=== PATIENT | male | born 1965 | race Caucasian/White ===

== ENCOUNTER 2021-05-06 08:00 | Outpatient (RCR) | payer SELFPAY ==
--- NOTE | 2021-04-20 10:45 | HP.OTEVAL_ITS ---
Patient's Visit Information NADINE ESPINOZA is a 55 year old M, referred to Occupational Therapy by Dr. Jonatan Gayle MD, with a diagnosis of left CTS/ DeQuervain's. Date of Evaluation: 04/20/21 Occupational Therapist: Mary Link, OTR/[place], CHT - Subjective This 55 year old male was seen for OT eval with dx of left CTS and right radial styloid tenosynovitis -pt states right pain comes and goes and has for awhile - more painful with home projects. left thumb numbness more since 5 week RV trip with many hours of driving and holding steering wheel tight. Pt states the numbness of is left thumb is less but still bothersome- pt would like to return to performing home re-model as able. 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 - Pain right wrist 2 Pain Intensity Range: 5 left hand 1 Pain Intensity Range: 3 - ROM Wrist: right 70/65 left 60/55 CMC: right 15 left 15 MP: right 40 left 55 IP: right 70 left 70 Radial Abduction: right 40 left 45 Opposition: right 10 left 10 - Strength Material [employer]: right 90# left 90# Lateral Pinch: right 16# pain with release left 20# Tripod Pinch: right 10# with pain left 14# Tip-to-Tip Pinch: right 10# left 10# - Sensation Sensation Comments: tip of left thumb ulnar side tingling. denies any other finger tips - Quick DASH-Disab of Arm,Shoulder& Hand Quick DASH Score: 16.0700 - Goals Goal:: pt will report pain no greater than 1/10 with use of right UE with ADls and IADls by dc Goal:: pt will report 70% less numbness by d/c to increase ind with ADLs by d/c. pt will test at 2.83 on monofilaments indicating sensation return Goal:: pt will demo understanding of joint protection- wrist ergo to decrease stress on tendons by end of session 4. Goal:: pt will self report the ability to swing hammer with pain no greater than 2/10 by d.c Goal:: pt will demo IND doffing/donning of orthosis by end of 1st session. pt will demo understanding of orthosis precautions by end of 1st session. - Rehabilitation General Assessment: pt demo with with painful right wrist and tingling in left thumb limiting use of bilateral hand with IADLs and work tasks. Pt would benefit from skilled OT services 2x week for 4 weeks. Today therapist griselda. custom thumb spica orthosis for right wrist and ed. pt to use cock-up brace for night on left to limit median nerve compression- pt demo understanding- therapy will ed. pt on wrist ergo with ADls and with his health and wellness exercise. Therapy will ed. pt on postural ex. median nerve glides to assist in decreasing symptoms and return pt to his PLOF. Pt agrees with POC. Rehabilitation Potential: Good - Anticipated Interventions Strengthening, Triggerpoint Release, Modalities, Orthoses, Ergonomic Education, Education re Diagnosis - Visit Plan Frequency: 2x /Week Duration: 4 Weeks TEXT: Thank you for the opportunity to evaluate your patient. For Medicare and Medicare HMO plans, please review the plan of care and approve it. It will need to be FAXED BACK to us at [phone] for Medicare purposes. Please let me know if there are questions or concerns regarding this plan of care. Physician Signature: Date:
--- NOTE | 2021-05-13 08:50 | HP.OTDCSUM_ITS ---
It has been my pleasure to treat NADINE ESPINOZA under orders from Dr. Jonatan Gayle MD, for the diagnosis of left CTS/ DeQuervain's for a total of 6 visit(s). Please see the following information for a summary of their discharge status. 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 right lateral pinch 16#. right tripod pinch 8#. pt demo neg. awa's testing. pt demo understanding of use of orthosis for heavy tasks -. pt ed. on wrist and thumb ergro-. pts left thumb numbness has resolved. pt agree to d/c with HEP Patient Goals: Decrease Pain, Use Hand/Wrist/Arm Normally Again Goal:: pt will report pain no greater than 1/10 with use of right UE with ADls and IADls by dc Goal:: pt will report 70% less numbness by d/c to increase ind with ADLs by d/c. pt will test at 2.83 on monofilaments indicating sensation return Goal:: pt will demo understanding of joint protection- wrist ergo to decrease stress on tendons by end of session 4. Goal:: pt will self report the ability to swing hammer with pain no greater than 2/10 by d.c Goal:: pt will demo IND doffing/donning of orthosis by end of 1st session. pt will demo understanding of orthosis precautions by end of 1st session. Plan: D/C Discharge Comments: pt has had a decrease in pain and has returned to performing ADLs at IND. level. pt was instructed in HEP and tips for his lifting in the gym. pt has made gains with decreasing wrist pain- use of supportive bracing and performing thumb care exercises to increase thumb stability- pt has met goals and agree to d.c with HEP If there are questions or concerns regarding this patient's occupational therapy, please fell free to call me at [phone]. Thank you for the referral of this patient. Sincerely, Mary Link, OTR/L, CHT
== END 2021-05-06 19:00 | disposition home or self-care (01) ==
LOC: OT 08:00
PROVIDERS: PCP Nurse Practitioner Family; Referring Provider Specialist; Visit Provider Specialist
DX: G56.02 Carpal tunnel syndrome, left upper limb (principal); M65.4 Radial styloid tenosynovitis [de Quervain]
CPT/HCPCS: 97035; 97110; 97140; 97166; 97530; 97760

== ENCOUNTER → 2025-03-25 | Outpatient (CLI) | payer SELFPAY ==
--- OUTSIDE RECORDS SUMMARY | 2025-03-25 07:08 | XMS RPT_ITS | CCD ---
Author Organization [facility] Care Team Providers Care Lead Business Systems Analyst Name Role Phone JOSE R OLEARY APRN, CNP Primary Care Phys ician JOSE R OLEARY APRN, CNP Attending U JOSE R Lopez APRN, CNP Primary Care U kirk Medications Current Medications Medication Drug Class(es) Dates Sig (Normalized) Sig (Original) azithromycin 250 mg oral tablet (1 source) Macrolide Antimicrobial Start: 06-19-2021 End: 06-24-2021 Zithromax 250 mg oral tablet Dose : 250 mg = 1 tab(s), Oral, qDay, follow directions on Z-Renard, X 5 day(s), # 6 tab(s), 0 Refill(s), 06/24/21 15:29:00 EDT, Pharmacy: [facility]/pharmacy #[id number], 170.2, cm, 06/19/21 14:37:00 EDT, Height, 86.4, kg, 06/19/21 14:37:00 EDT, Dosing Weight Start Date: 06/19/21 Stop Date: 06/24/21 Status: Ordered guaiFENesin 600 mg oral tablet (1 source) Start: 06-19-2021 End: 06-29-2021 guaiFENesin 600 mg oral tablet, extended release Dose : 600 mg = 1 tab(s), Oral, q12h, X 10 day(s), # 20 tab(s), 0 Refill(s), 06/29/21 15:30:00 EDT, Pharmacy: [facility]/pharmacy #[id number], 170.2, cm, 06/19/21 14:37:00 EDT, Height, kg, 06/19/21 14:37:00 EDT, Dosing Weight Start Date: 06/19/21 Stop Date: 06/29/21 Status: Ordered Medrol Dosepak 4 mg oral tablet (1 source) Start: 06-19-2021 End: 06-25-2021 Medrol Dosepak 4 mg oral tablet Per Dosepak Instructions, Oral, Daily, as directed on package labeling, X 6 day(s), # 1 packet(s), 0 Refill(s), 06/25/21 15:30:00 EDT, Pharmacy: [facility]/pharmacy #[id number], 170.2, cm, 06/19/21 14:37:00 EDT, Height, kg, 06/19/21 14:37:00 EDT, Dosing Weight Start Date: 06/19/21 Stop Date: 06/25/21 Status: Ordered turmeric extract 500 mg oral capsule (1 source) Start: 11-30-2021 turmeric 500 mg oral capsule 0 Refill(s) Start Date: 11/30/21 Status: Ordered Vitamin C 25 mg oral tablet, chewable (2 sources) Start: 11-30-2021 take 1 mg by mouth once daily Vitamin C 25 mg oral tablet, chewable mg = tab(s), Chewed, qDay, 0 Refill(s) Start Date: 11/30/21 Status: Ordered Vitamin D2 50 mcg (2000 intl units) oral capsule (2 sources) Start: 11-30-2021 Vitamin D2 50 mcg (2000 intl units) oral capsule Dose : 50 mcg = 1 cap(s), Oral, qDay, with food, # 60 cap(s), 0 Refill(s) Start Date: 11/30/21 Status: Ordered Completed/Discontinued Medications Medication Drug Class(es) Dates Sig (Normalized) Sig (Original) tadalafil 2.5 mg oral tablet (3 sources) Phosphodiesterase 5 Inhibitor Start: 05-31-2023 End: 11-27-2023 Cialis 2.5 mg oral tablet Dose : 2.5 mg = 1 tab(s), Oral, qDay, # 30 tab(s), 5 Refill(s), Pharmacy: [facility] #[id number], ED (erectile dysfunction), 167, cm, 05/31/23 13:22:00 EST, Height, kg, 05/31/23 13:22:00 EST, Dosing Weight Start Date: 05/31/23 Stop Date: 11/27/23 Status: Ordered Start: 11-30-2021 End: 06-28-2022 Cialis 2.5 mg oral tablet Do se : 2.5 mg = 1 tab(s), Oral, qDay, # 30 tab(s), 6 Refill(s), Pharmacy: [facility] #[id number], ED (erectile dysfunction), 170.2, cm, 11/30/21 8:04:00 EDT, Height, kg, 11/30/21 8:04:00 EDT, Dosing Weight Start Date: 11/30/21 Stop Date: 06/28/22 Status: Ordered Start: 06-01-2021 End: 09-29-2021 Cialis 2.5 mg oral tablet Do se : 2.5 mg = 1 tab(s), Oral, qDay, # 30 tab(s), 3 Refill(s), ED (erectile dysfunction), 167, cm, 06/01/21 14:48:00 EST, Height, kg, 06/01/21 14:48:00 EST, Dosing Weight Start Date: 06/01/21 Stop Date: 09/29/21 Status: Ordered Problems Problem Classification Problem Date Documented Da te Episodic/Chronic Other and unspecified benign neoplasm (2 sources) Polyp of colon 11-30-2021 Episodic Other lower respiratory disease (2 sources) Chronic cough 06-23-2021 Episodic Other male genital disorders (3 sources) Impotence 01-28-2020 Chronic Other nutritional; endocrine; and metabolic disorders (1 source) Body mass index 30+ - obesity 05-31-2023 Chronic Other nutritional; endocrine; and metabolic disorders (2 sources) Body mass index (BMI) 31.0-31.9, adult; Translations: [Body mass index [BMI] 31.0-31.9, adult] Onset: 11-24-2023 Chronic Other screening for suspected conditions (not mental disorders or infectious disease) (6 sources) Encounter for screening for malignant neoplasm of prostate; Translations: [Encounter for screening for diabetes mellitus] Onset: 11-24-2023 Episodic Unclassified (5 sources) Patient encounter status 11-30-2021 Results Test Name Value Interpretation Reference Range Facility .Auto Diffon 11-24-2023 Basophil, Absolute 0.0 10 3/mcL Normal 0.0-0.2 [facility] ([place]) Comment on above: Performed By: #### G FR, PSA, ADIFF, LIPID, CBC, ANEU, CMP, A1C #### [address] [address] Basophils/100 WBC (Bld) 0.6 % Normal 0.0-2.5 [facility] ([place]) Comment on above: Performed By: #### G FR, PSA, ADIFF, LIPID, CBC, ANEU, CMP, A1C #### [address] [address] Eosinophil, Absolute 0.2 10 3/mcL Normal 0.0-0.4 [facility] ([place]) Comment on above: Performed By: #### G FR, PSA, ADIFF, LIPID, CBC, ANEU, CMP, A1C #### [address] [address] Eosinophils/100 WBC (Bld) 2.4 % Normal 0.0-7.0 [facility] ([place]) Comment on above: Performed By: #### G FR, PSA, ADIFF, LIPID, CBC, ANEU, CMP, A1C #### [address] [address] Lymphocyte, Absolute 1.8 10 3/mcL Normal 0.8-3.9 [facility] ([place]) Comment on above: Performed By: #### G FR, PSA, ADIFF, LIPID, CBC, ANEU, CMP, A1C #### [address] [address] Lymphocytes/100 WBC (Bld) 24.4 % Normal 10.0-50.0 [facility] ([place]) Comment on above: Performed By: #### G FR, PSA, ADIFF, LIPID, CBC, ANEU, CMP, A1C #### [address] [address] Monocyte, Absolute 0.7 10 3/mcL Normal 0.2-1.0 [facility] ([place]) Comment on above: Performed By: #### G FR, PSA, ADIFF, LIPID, CBC, ANEU, CMP, A1C #### [address] [address] Monocytes/100 WBC (Bld) 9.5 % Normal 1.7-13.0 [facility] ([place]) Comment on above: Performed By: #### G FR, PSA, ADIFF, LIPID, CBC, ANEU, CMP, A1C #### [address] [address] Neutrophils/100 WBC (Bld) 63.1 % Normal 37.0-80.0 [facility] ([place]) Comment on above: Performed By: #### G FR, PSA, ADIFF, LIPID, CBC, ANEU, CMP, A1C #### [address] [address] .GFRon 11-24-2023 GFR Non- 71 ml/min/1.73sqm Normal [facility] ([place]) Comment on above: Result Comment: GFR Population mean for , Non- Americans Ages 20-29 = 116 mL/min/1.73 sq.m. Ages 30-39 = 107 mL/min/1.73 sq.m. Ages 40-49 = 99 mL/min/1.73 sq.m. Ages 50-59 = 93 mL/min/1.73 sq.m. Ages 60-69 = 85 mL/min/1.73 sq.m. Ages 70+ = 75 mL/min/1.73 sq.m. Chronic Kidney Disease: Less than 60 mL/min/1.73 square meters End Stage Renal Disease: Less than 15 mL/min/1.73 square meters Performed By: #### G FR, PSA, ADIFF, LIPID, CBC, ANEU, CMP, A1C #### [address] [address] GFR 86 ml/min/1.73sqm Normal [facility] ([place]) Comment on above: Result Comment: GFR Population mean for , Non- Americans Ages 20-29 = 116 mL/min/1.73 sq.m. Ages 30-39 = 107 mL/min/1.73 sq.m. Ages 40-49 = 99 mL/min/1.73 sq.m. Ages 50-59 = 93 mL/min/1.73 sq.m. Ages 60-69 = 85 mL/min/1.73 sq.m. Ages 70+ = 75 mL/min/1.73 sq.m. Chronic Kidney Disease: Less than 60 mL/min/1.73 square meters End Stage Renal Disease: Less than 15 mL/min/1.73 square meters Performed By: #### G FR, PSA, ADIFF, LIPID, CBC, ANEU, CMP, A1C #### [address] [address] .NEUABSon 11-24-2023 Neutrophil, Absolute 4.8 10 3/mcL Normal 2.9-6.2 [facility] ([place]) Comment on above: Performed By: #### G FR, PSA, ADIFF, LIPID, CBC, ANEU, CMP, A1C #### [address] [address] A1Con 11-24-2023 Glucose [Mass/Vol] 111 mg/dL Normal [facility] ([place]) Comment on above: Result Comment: Alejandra mated Average Glucose calculated by equation ((28.7xA1C)-46.7) Estimated average glucose (eAG) is a calculated value from Hemoglobin A1C and is technology sales representative of the average blood glucose level in the last 2-3 month period. Normal range: less than 114 mg/dL Performed By: #### G FR, PSA, ADIFF, LIPID, CBC, ANEU, CMP, A1C #### [address] [address] HbA1c (Bld) [Mass fraction] 5.5 % Normal 4.3-6.4 [facility] ([place]) Comment on above: Performed By: #### G FR, PSA, ADIFF, LIPID, CBC, ANEU, CMP, A1C #### [address] [place], [place] [address] CBCon 11-24-2023 Erythrocyte distribution width (RBC) [Ratio] 13.5 % Normal 11.5-14.5 [facility] ([place]) Comment on above: Performed By: #### G FR, PSA, ADIFF, LIPID, CBC, ANEU, CMP, A1C #### [address] [address] Hematocrit (Bld) [Volume fraction] 45.3 % Normal 42.0-52.0 [facility] ([place]) Comment on above: Performed By: #### G FR, PSA, ADIFF, LIPID, CBC, ANEU, CMP, A1C #### [address] [address] Hgb 15.3 G/dL Normal 14.0-18.0 [facility] ([place]) Comment on above: Performed By: #### G FR, PSA, ADIFF, LIPID, CBC, ANEU, CMP, A1C #### [address] [address] MCH (RBC) [Entitic mass] 31.1 pg Normal 27.0-31.2 [facility] ([place]) Comment on above: Performed By: #### G FR, PSA, ADIFF, LIPID, CBC, ANEU, CMP, A1C #### [address] [address] MCHC 33.8 G/dL Normal 31.8-35.4 [facility] ([place]) Comment on above: Performed By: #### G FR, PSA, ADIFF, LIPID, CBC, ANEU, CMP, A1C #### [address] [address] MCV (RBC) [Entitic vol] 92.1 fL Normal 80.0-94.0 [facility] ([place]) Comment on above: Performed By: #### G FR, PSA, ADIFF, LIPID, CBC, ANEU, CMP, A1C #### [address] [address] Platelet 226 10 3/mcL Normal 130-400 [facility] ([place]) Comment on above: Performed By: #### G FR, PSA, ADIFF, LIPID, CBC, ANEU, CMP, A1C #### [address] [address] Platelet mean volume (Bld) [Entitic vol] 8.1 fL Normal 7.4-10.4 [facility] ([place]) Comment on above: Performed By: #### G FR, PSA, ADIFF, LIPID, CBC, ANEU, CMP, A1C #### [address] [address] RBC 4.92 10 6/mcL Normal 4.04-6.13 [facility] ([place]) Comment on above: Performed By: #### G FR, PSA, ADIFF, LIPID, CBC, ANEU, CMP, A1C #### [address] [address] WBC 7.5 10 3/mcL Normal 4.6-10.8 [facility] ([place]) Comment on above: Performed By: #### G FR, PSA, ADIFF, LIPID, CBC, ANEU, CMP, A1C #### [address] [address] CMPon 11-24-2023 Albumin Level 3.9 G/dL Normal 3.5-5.0 [facility] ([place]) Comment on above: Performed By: #### G FR, PSA, ADIFF, LIPID, CBC, ANEU, CMP, A1C #### [address] [address] Albumin/Globulin [Mass ratio] 1.1 {ratio} Normal 1.1-2.5 [facility]) Comment on above: Performed By: #### G FR, PSA, ADIFF, LIPID, CBC, ANEU, CMP, A1C #### [address] [address] ALP [Catalytic activity/Vol] 57 U/L Normal 40-135 [facility] ([place]) Comment on above: Performed By: #### G FR, PSA, ADIFF, LIPID, CBC, ANEU, CMP, A1C #### [address] [address] ALT [Catalytic activity/Vol] 30 U/L Normal 16-63 [facility] ([place]) Comment on above: Performed By: #### G FR, PSA, ADIFF, LIPID, CBC, ANEU, CMP, A1C #### [address] [address] AST [Catalytic activity/Vol] 19 U/L Normal 10-40 [facility] ([place]) Comment on above: Performed By: #### G FR, PSA, ADIFF, LIPID, CBC, ANEU, CMP, A1C #### [address] [address] Bili Total 0.6 mg/dL Normal 0.2-1.0 [facility] ([place]) Comment on above: Result Comment: Use of this assay is not recommended for patients undergoing treatment with eltrombopag due to the potential for falsely elevated results. Performed By: #### G FR, PSA, ADIFF, LIPID, CBC, ANEU, CMP, A1C #### [address] [address] BUN/Creatinine Ratio 18 ratio Normal 7-27 [facility] ([place]) Comment on above: Performed By: #### G FR, PSA, ADIFF, LIPID, CBC, ANEU, CMP, A1C #### [address] [address] Calcium [Mass/Vol] 9.0 mg/dL Normal 8.4-10.2 [facility] ([place]) Comment on above: Performed By: #### G FR, PSA, ADIFF, LIPID, CBC, ANEU, CMP, A1C #### [address] [address] Chloride [Moles/Vol] 103 mmol/L Normal 98-107 [facility] ([place]) Comment on above: Performed By: #### G FR, PSA, ADIFF, LIPID, CBC, ANEU, CMP, A1C #### [address] [address] CO2 [Moles/Vol] 32 mmol/L High 22-29 [facility] ([place]) Comment on above: Performed By: #### G FR, PSA, ADIFF, LIPID, CBC, ANEU, CMP, A1C #### [address] [address] Creatinine [Mass/Vol] 1.07 mg/dL Normal 0.70-1.30 [facility] ([place]) Comment on above: Performed By: #### G FR, PSA, ADIFF, LIPID, CBC, ANEU, CMP, A1C #### [address] [address] Electrolyte Balance 4.0 mEq/L Normal 4.0-15.0 [facility] ([place]) Comment on above: Performed By: #### G FR, PSA, ADIFF, LIPID, CBC, ANEU, CMP, A1C #### [address] [address] Globulin 3.4 G/dL Normal [facility] ([place]) Comment on above: Performed By: #### G FR, PSA, ADIFF, LIPID, CBC, ANEU, CMP, A1C #### [address] [address] Glucose [Mass/Vol] 95 mg/dL Normal 70-105 [facility] ([place]) Comment on above: Performed By: #### G FR, PSA, ADIFF, LIPID, CBC, ANEU, CMP, A1C #### [address] [address] Potassium [Moles/Vol] 4.3 mmol/L Normal 3.5-5.1 [facility] ([place]) Comment on above: Performed By: #### G FR, PSA, ADIFF, LIPID, CBC, ANEU, CMP, A1C #### [address] [address] Sodium [Moles/Vol] 139 mmol/L Normal 136-145 [facility] ([place]) Comment on above: Performed By: #### G FR, PSA, ADIFF, LIPID, CBC, ANEU, CMP, A1C #### [address] [address] Total Protein 7.3 G/dL Normal 6.4-8.2 [facility] ([place]) Comment on above: Performed By: #### G FR, PSA, ADIFF, LIPID, CBC, ANEU, CMP, A1C #### [address] [address] Urea nitrogen [Mass/Vol] 19 mg/dL High 7-18 [facility] ([place]) Comment on above: Performed By: #### G FR, PSA, ADIFF, LIPID, CBC, ANEU, CMP, A1C #### [address] [place], [place] [address] LABORATORYOrdered By: SYSTEM SYSTEM on 11-24-2023 Albumin BCP dye [Mass/Vol] 3.9 G/dL Normal 3.5 - 5.0 G/dL AO ADM SS Albumin/Globulin [Mass ratio] 1.1 {ratio} Normal 1.1 - 2.5 ratio AO ADM SS ALP [Catalytic activity/Vol] 57 U/L Normal 40 - 135 U/L AO ADM SS ALT With P-5'-P [Catalytic activity/Vol] 30 U/L Normal 16 - 63 U/L AO ADM SS AST With P-5'-P [Catalytic activity/Vol] 19 U/L Normal 10 - 40 U/L AO ADM SS Basophil, Absolute 0.0 103/mcL Normal 0.0 - 0.2 10^3/mcL AO Workflow SS Basophils/100 WBC (Bld) 0.6 % Normal 0.0 - 2.5 % AO Workflow SS Bilirubin [Mass/Vol] 0.6 mg/dL Normal 0.2 - 1 .0 mg/dL AO ADM SS Comment on above: Interpretive Data: U se of this assay is not recommended for patients undergoing treatment with eltrombopag due to the potential for falsely elevated results. Calcium [Mass/Vol] 9.0 mg/dL Normal 8.4 - 10. 2 mg/dL AO ADM SS Chloride [Moles/Vol] 103 mmol/L Normal 98 - 10 7 mmol/L AO ADM SS CO2 [Moles/Vol] 32 mmol/L High 22 - 29 mmol/L AO ADM SS Creatinine [Mass/Vol] 1.07 mg/dL Normal 0.70 - 1.30 mg/dL AO ADM SS Electrolyte Balance 4.0 mEq/L Normal 4.0 - 15 .0 mEq/L AO ADM SS Eosinophil, Absolute 0.2 103/mcL Normal 0.0 - 0 .4 10^3/mcL AO Workflow SS Eosinophils/100 WBC (Bld) 2.4 % Normal 0.0 - 7.0 % AO Workflow SS Erythrocyte distribution width (RBC) [Ratio] 13.5 % Normal 11.5 - 14.5 % AO Workflow SS GFR/1.73 sq M.predicted among blacks MDRD (S/P/Bld) [Vol rate/Area] 86 ml/min/1.73sqm Invalid Interpretation Code AO Chemistry S Comment on above: Interpretive Data: GFR Population mean for , Non- Americans Ages 20-29 = 116 mL/min/1.73 sq.m. Ages 30-39 = 107 mL/min/1.73 sq.m. Ages 40-49 = 99 mL/min/1.73 sq.m. Ages 50-59 = 93 mL/min/1.73 sq.m. Ages 60-69 = 85 mL/min/1.73 sq.m. Ages 70+ = 75 mL/min/1.73 sq.m. Chronic Kidney Disease: Less than 60 mL/min/1.73 square meters End Stage Renal Disease: Less than 15 mL/min/1.73 square meters GFR/1.73 sq M.predicted among non-blacks MDRD (S/P/Bld) [Vol rate/Area] 71 ml/min/1.73sqm Invalid Interpretation Code AO Chemistry S Comment on above: Interpretive Data: GFR Population mean for , Non- Americans Ages 20-29 = 116 mL/min/1.73 sq.m. Ages 30-39 = 107 mL/min/1.73 sq.m. Ages 40-49 = 99 mL/min/1.73 sq.m. Ages 50-59 = 93 mL/min/1.73 sq.m. Ages 60-69 = 85 mL/min/1.73 sq.m. Ages 70+ = 75 mL/min/1.73 sq.m. Chronic Kidney Disease: Less than 60 mL/min/1.73 square meters End Stage Renal Disease: Less than 15 mL/min/1.73 square meters Globulin 3.4 G/dL Invalid Interpretation Code AO ADM SS Glucose [Mass/Vol] 111 mg/dL Invalid Interpretation Code AO Chemistry S Comment on above: Interpretive Data: E stimated average glucose (eAG) is a calculated value from Hemoglobin A1C and is technology sales representative of the average blood glucose level in the last 2-3 month period. Normal range: less than 114 mg/dL Glucose [Mass/Vol] 95 mg/dL Normal 70 - 105 mg/dL AO ADM SS HbA1c (Bld) [Mass fraction] 5.5 % Normal 4.3 - 6.4 % AO ADM SS Hematocrit (Bld) [Volume fraction] 45.3 % Normal 42.0 - 52.0 % AO Workflow SS Hemoglobin (Bld) [Mass/Vol] 15.3 G/dL Normal 14.0 - 18.0 G/dL AO Workflow SS Lymphocyte, Absolute 1.8 103/mcL Normal 0.8 - 3 .9 10^3/mcL AO Workflow SS Lymphocytes/100 WBC (Bld) 24.4 % Normal 10.0 - 50.0 % AO Workflow SS MCH (RBC) [Entitic mass] 31.1 pg Normal 27.0 - 31.2 pg AO Workflow SS MCHC 33.8 G/dL Normal 31.8 - 35.4 G/dL AO Workflow SS MCV (RBC) [Entitic vol] 92.1 fL Normal 80.0 - 94.0 fL AO Workflow SS Monocyte, Absolute 0.7 103/mcL Normal 0.2 - 1.0 10^3/mcL AO Workflow SS Monocytes/100 WBC (Bld) 9.5 % Normal 1.7 - 13.0 % AO Workflow SS Neutrophil, Absolute 4.8 103/mcL Normal 2.9 - 6 .2 10^3/mcL AO Workflow SS Neutrophils/100 WBC (Bld) 63.1 % Normal 37.0 - 80.0 % AO Workflow SS Platelet mean volume (Bld) [Entitic vol] 8.1 fL Normal 7.4 - 10.4 fL AO Workflow SS Platelets (Bld) [#/Vol] 226 103/mcL Normal 130 - 400 10^3/mcL AO Workflow SS Potassium [Moles/Vol] 4.3 mmol/L Normal 3.5 - 5.1 mmol/L AO ADM SS Prostate specific Ag [Mass/Vol] 1.39 ng/mL Normal 0.00 - 4.00 ng/mL AO ADM SS Protein [Mass/Vol] 7.3 G/dL Normal 6.4 - 8.2 G/dL AO ADM SS RBC (Bld) [#/Vol] 4.92 106/mcL Normal 4.04 - 6.1 3 10^6/mcL AO Workflow SS Sodium [Moles/Vol] 139 mmol/L Normal 136 - 145 mmol/L AO ADM SS Urea nitrogen [Mass/Vol] 19 mg/dL High 7 - 18 mg/dL AO ADM SS Urea nitrogen/Creatinine [Mass ratio] 18 ratio Normal 7 - 27 ratio AO ADM SS WBC (Bld) [#/Vol] 7.5 103/mcL Normal 4.6 - 10.8 10^3/mcL AO Workflow SS LABORATORYOrdered By: Meek Farias on 11-24-2023 Cholesterol [Mass/Vol] 175 mg/dL Normal 0 - 200 mg/dL AO ADM SS Comment on above: Interpretive Data: C holesterol Reference Interval: Less than 200 Desirable 200-239 Borderline high risk 240 and above High risk Cholesterol in HDL [Mass/Vol] 55 mg/dL Normal 40 - 60 mg/dL AO ADM SS Cholesterol in LDL [Mass/Vol] 111 mg/dL Normal 0 - 130 mg/dL AO ADM SS Triglyceride [Mass/Vol] 43 mg/dL Normal 0 - 150 mg/dL AO ADM SS Comment on above: Interpretive Data: T riglyceride Reference Interval: Less than 150 Normal 150-199 Borderline high risk 200-499 High risk 500 or higher Very high risk LIPIDon 11-24-2023 Cholesterol [Mass/Vol] 175 mg/dL Normal 0-200 [facility] ([place]) Comment on above: Result Comment: Chol esterol Reference Interval: Less than 200 Desirable 200-239 Borderline high risk 240 and above High risk Performed By: #### G FR, PSA, ADIFF, LIPID, CBC, ANEU, CMP, A1C #### [address] [address] Cholesterol in HDL [Mass/Vol] 55 mg/dL Normal 40-60 [facility] ([place]) Comment on above: Performed By: #### G FR, PSA, ADIFF, LIPID, CBC, ANEU, CMP, A1C #### [address] [place], [place] [address] Cholesterol in LDL [Mass/Vol] 111 mg/dL Normal 0-130 [facility] ([place]) Comment on above: Performed By: #### G FR, PSA, ADIFF, LIPID, CBC, ANEU, CMP, A1C #### [address] [place], [place] [address] Triglyceride [Mass/Vol] 43 mg/dL Normal 0-150 [facility] ([place]) Comment on above: Result Comment: Trig lyceride Reference Interval: Less than 150 Normal 150-199 Borderline high risk 200-499 High risk 500 or higher Very high risk Performed By: #### G FR, PSA, ADIFF, LIPID, CBC, ANEU, CMP, A1C #### [address] [place], [place] [address] PSAon 11-24-2023 Prostate Specific Antigen 1.39 ng/mL Normal 0.00-4.00 [facility] ([place]) Comment on above: Performed By: #### G FR, PSA, ADIFF, LIPID, CBC, ANEU, CMP, A1C #### [address] [place], [place] [address] LABORATORYOrdered By: Emeli Anthony on 11-26-2021 Albumin BCP dye [Mass/Vol] 4.2 G/dL Invalid Interpretation Code 3.5 - 5.0 G/dL AO ADM SS Albumin/Globulin [Mass ratio] 1.3 {ratio} Invalid Interpretation Code 1.1 - 2.5 ratio AO ADM SS ALP [Catalytic activity/Vol] 44 U/L Invalid Interpretation Code 40 - 135 U/L AO ADM SS ALT With P-5'-P [Catalytic activity/Vol] 57 U/L Invalid Interpretation Code 16 - 63 U/L AO ADM SS AST With P-5'-P [Catalytic activity/Vol] 27 U/L Invalid Interpretation Code 10 - 40 U/L AO ADM SS Bilirubin [Mass/Vol] 0.6 mg/dL Invalid Interpretation Code 0.2 - 1.0 mg/dL AO ADM SS Calcium [Mass/Vol] 9.1 mg/dL Invalid Interpretation Code 8.4 - 10.2 mg/dL AO ADM SS Chloride [Moles/Vol] 102 mmol/L Invalid Interpretation Code 98 - 107 mmol/L AO ADM SS Cholesterol [Mass/Vol] 184 mg/dL Invalid Interpretation Code 0 - 200 mg/dL AO ADM SS Cholesterol in HDL [Mass/Vol] 58 mg/dL Invalid Interpretation Code 40 - 60 mg/dL AO ADM SS Cholesterol in LDL [Mass/Vol] 115 mg/dL Invalid Interpretation Code 0 - 130 mg/dL AO ADM SS CO2 [Moles/Vol] 30 mmol/L Invalid Interpretation Code 22 - 29 mmol/L AO ADM SS Creatinine [Mass/Vol] 1.11 mg/dL Invalid Interpretation Code 0.70 - 1.30 mg/dL AO ADM SS Electrolyte Balance 6.0 mEq/L Invalid Interpretation Code 4.0 - 15.0 mEq/L AO ADM SS Globulin 3.2 G/dL Invalid Interpretation Code AO ADM SS Glucose [Mass/Vol] 91 mg/dL Invalid Interpretation Code 70 - 105 mg/dL AO ADM SS Potassium [Moles/Vol] 5.2 mmol/L Invalid Interpretation Code 3.5 - 5.1 mmol/L AO ADM SS Prostate specific Ag [Mass/Vol] 1.64 ng/mL Invalid Interpretation Code 0.00 - 4.00 ng/mL AO ADM SS Protein [Mass/Vol] 7.4 G/dL Invalid Interpretation Code 6.4 - 8.2 G/dL AO ADM SS Sodium [Moles/Vol] 138 mmol/L Invalid Interpretation Code 136 - 145 mmol/L AO ADM SS Triglyceride [Mass/Vol] 56 mg/dL Invalid Interpretation Code 0 - 150 mg/dL AO ADM SS Urea nitrogen [Mass/Vol] 15 mg/dL Invalid Interpretation Code 7 - 18 mg/dL AO ADM SS Urea nitrogen/Creatinine [Mass ratio] 14 ratio Invalid Interpretation Code 7 - 27 ratio AO ADM SS LABORATORYOrdered By: SYSTEM SYSTEM on 11-26-2021 GFR 83 ml/min/1.73sqm Invalid Interpretation Code AO Chemistry S GFR Non- 68 ml/min/1.73sqm Invalid Interpretation Code AO Chemistry S LABORATORYOrdered By: Carmen Yates on 06-23-2021 Adenovirus DNA CARYN+non-probe Ql (Nph) Not Detected *NA* (06/23/21 12:00 PM) Invalid Interpretation Code Not Detected AH Auto Viro/Sero SS ADMITTED TO INTENSIVE CARE UNIT FOR CONDITION OF INTEREST:FIND:PT:^MARK ENT:ORD: No (06/23/21 12:00 PM) Invalid Interpretation Code AH Auto Viro/Sero SS B. pertussis toxin promoter region CARYN+non-probe Ql (Nph) Not Detected *NA* (06/23/21 12:00 PM) Invalid Interpretation Code Not Detected AH Auto Viro/Sero SS Bordetella Parapertussis Not Detected *NA* (06/23/21 12:00 PM) Invalid Interpretation Code Not Detected Auto Viro/Sero SS C. pneumoniae DNA CARYN+non-probe Ql (Nph) Not Detected *NA* (06/23/21 12:00 PM) Invalid Interpretation Code Not Detected Auto Viro/Sero SS EMPLOYED IN A HEALTHCARE SETTING:FIND:PT:^MARKE NT:ORD: No (06/23/21 12:00 PM) Invalid Interpretation Code AH Auto Viro/Sero SS FIRST TEST FOR CONDITION OF INTEREST:FIND:PT:^MARK ENT:ORD: Unknown (06/23/21 12:00 PM) Invalid Interpretation Code [employer] SS FLUAV H3 RNA CARYN+non-probe Ql (Nph) Detected 1 *ABN* (06/23/21 12:00 PM) Invalid Interpretation Code Not Detected [employer] SS Comment on above: Result Comment: This organism causes a reportable disease. Infection Control has been notified. Results have been reported to the [place] [facility]. FLUBV RNA CARYN+non-probe Ql (Nph) Not Detected *NA* (06/23/21 12:00 PM) Invalid Interpretation Code Not Detected [employer] SS HAS SYMPTOMS RELATED TO CONDITION OF INTEREST:FIND:PT:^MARK ENT:ORD: Yes (06/23/21 12:00 PM) Invalid Interpretation Code Auto Viro/Sero SS hMPV RNA CARYN+non-probe Ql (Nph) Not Detected *NA* (06/23/21 12:00 PM) Invalid Interpretation Code Not Detected Auto Viro/Sero SS Illness or injury onset date and time [id number] Invalid Interpretation Code Auto Viro/Sero SS M. pneumoniae DNA CARYN+non-probe Ql (Nph) Not Detected *NA* (06/23/21 12:00 PM) Invalid Interpretation Code Not Detected Auto Viro/Sero SS Parainfluenza virus 1 RNA CARYN+non-probe Ql (Nph) Not Detected *NA* (06/23/21 12:00 PM) Invalid Interpretation Code Not Detected Auto Viro/Sero SS Parainfluenza virus 2 RNA CARYN+non-probe Ql (Nph) Not Detected *NA* (06/23/21 12:00 PM) Invalid Interpretation Code Not Detected Auto Viro/Sero SS Parainfluenza virus 3 RNA CARYN+non-probe Ql (Nph) Not Detected *NA* (06/23/21 12:00 PM) Invalid Interpretation Code Not Detected AH Auto Viro/Sero SS Parainfluenza virus 4 RNA CARYN+non-probe Ql (Nph) Not Detected *NA* (06/23/21 12:00 PM) Invalid Interpretation Code Not Detected AH Auto Viro/Sero SS Patient was hospitalized because of this condition No (06/23/21 12:00 PM) Invalid Interpretation Code AH Auto Viro/Sero SS status Not (06/23/21 12:00 PM) Invalid Interpretation Code AH Auto Viro/Sero SS RESIDES IN A CONGREGATE CARE SETTING:FIND:PT:^PATIE NT:ORD: No (06/23/21 12:00 PM) Invalid Interpretation Code AH Auto Viro/Sero SS Rhinovirus+Enterovirus RNA CARYN+non-probe Ql (Nph) Not Detected *NA* (06/23/21 12:00 PM) Invalid Interpretation Code Not Detected Auto Viro/Sero SS RSV RNA CARYN+non-probe Ql (Nph) Not Detected *NA* (06/23/21 12:00 PM) Invalid Interpretation Code Not Detected Auto Viro/Sero SS SARS-CoV-2 (COVID-19) RNA CARYN+probe Ql (Unsp spec) Not Detected *NA* (06/23/21 12:00 PM) Invalid Interpretation Code Not Detected Auto Viro/Sero SS OT D/C Summaryon 05-13-2021 OT D/C Summary [facility] Occupational Therapy Health[address] [place] [address] / REHABILITATION SERVICES DISCHARGE SUMMARY MR#: [id number] Acct: [id number] Name: NADINE ESPINOZA Rep #: [id number] : 1965 56 From: Mary MCBRIDE/Devon, CHT Referring Dr.: Dr. Jonatan Gayle MD Status: RE G RCR Eval Date: Discharge Date: It has been my pleasure to treat NADINE ESPINOZA under orders from Dr. Jonatan Gayle MD, for the diagnosis of left CTS/ DeQuervain's for a total of 6 visit(s). Please see the following information for a summary of their discharge status. % Improvement: 75 Objective/Function : right v belt finisher strength 90#. right lateral pinch 16#. right tripod pinch 8#. pt demo neg. awa's testing. pt demo understanding of use of orthosis for heavy tasks -. pt ed. on wrist and thumb ergro-. pts left thumb numbness has resolved. pt agree to d/c with HEP Patient Goals: Decrease Pain, Use Hand/Wrist/Arm Normally Again Goal:: pt will report pain no greater than 1/10 with use of right UE with ADls and IADls by dc Goal:: pt will report 70% less numbness by d/c to increase ind with ADLs by d/c. pt will test at 2.83 on monofilaments indicating sensation return Goal:: pt will demo understanding of joint protection- wrist ergo to decrease stress on tendons by end of session 4. Goal:: pt will self report the ability to swing hammer with pain no greater than 2/10 by d.c Goal:: pt will demo IND doffing/donning of orthosis by end of 1st session. pt will demo understanding of orthosis precautions by end of 1st session. Plan: D/C Discharge Comments: pt has had a decrease in pain and has returned to performing ADLs at IND. level. pt was instructed in HEP and tips for his lifting in the gym. pt has made gains with decreasing wrist pain- use of supportive bracing and performing thumb care exercises to increase thumb stability- pt has met goals and agree to d.c with HEP If there are questions or concerns regarding this patient's occupational therapy, please fell free to call me at [phone]. Thank you for the referral of this patient. Sincerely, Mary Link, RAE/Devon, CHT 05/13/21 0850 CC: [facility] [place] LEADERRobbin Espinoza; Dr. Joantan Gayle MD MK Signed Normal [facility] OT General Evaluationon 04-04 OT General Evaluation [facility] Occupational Therapy Health[address] [place] [address] / REHABILITATION SERVICES INITIAL EVALUATION MR#: [id number] Acct: [id number] Name: NADINE ESPINOZA Rep #: [id number] : 1965 55 From: Mary MCBRIDE/Devon, CHT Referring Dr.: Dr. Jonatan Gayle MD Status: RE G RCR Insurance: [facility] PACKAGE PLAN Eval Date: SELF PAY INSURANCE Patient's Visit Information NADINE ESPINOZA is a 55 year old M, referred to Occupational Therapy by Dr. Jonatan Gayle MD, with a diagnosis of left CTS/ DeQuervain's. Date of Evaluation: 04/20/21 Occupational Therapist: Mary Link, RAE/Devon, CHT - Subjective This 55 year old male was seen for OT eval with dx of left CTS and right radial styloid tenosynovitis -pt states right pain comes and goes and has for awhile - more painful with home projects. left thumb numbness more since 5 week RV trip with many hours of driving and holding steering wheel tight. Pt states the numbness of is left thumb is less but still bothersome- pt would like to return to performing home re-model as able. 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 - Pain right wrist 2 Pain Intensity Range: 5 left hand 1 Pain Intensity Range: 3 - ROM Wrist: right 70/65 left 60/55 CMC: right 15 left 15 MP: right 40 left 55 IP: right 70 left 70 Radial Abduction: right 40 left 45 Opposition: right 10 left 10 - Strength Gore Inserter: right 90# left 90# Lateral Pinch: right 16# pain with release left 20# Tripod Pinch: right 10# with pain left 14# Tip-to-Tip Pinch: right 10# left 10# - Sensation Sensation Comments: tip of left thumb ulnar side tingling. denies any other finger tips - Quick DASH-Disab of Arm,Shoulder Hand Quick DASH Score: 16.0700 - Goals Goal:: pt will report pain no greater than 1/10 with use of right UE with ADls and IADls by dc Goal:: pt will report 70% less numbness by d/c to increase ind with ADLs by d/c. pt will test at 2.83 on monofilaments indicating sensation return Goal:: pt will demo understanding of joint protection- wrist ergo to decrease stress on tendons by end of session 4. Goal:: pt will self report the ability to swing hammer with pain no greater than 2/10 by d.c Goal:: pt will demo IND doffing/donning of orthosis by end of 1st session. pt will demo understanding of orthosis precautions by end of 1st session. - Rehabilitation General Assessment: pt demo with with painful right wrist and tingling in left thumb limiting use of bilateral hand with IADLs and work tasks. Pt would benefit from skilled OT services 2x week for 4 weeks. Today therapist griselda. custom thumb spica orthosis for right wrist and ed. pt to use cock-up brace for night on left to limit median nerve compression- pt demo understanding- therapy will ed. pt on wrist ergo with ADls and with his health and wellness exercise. Therapy will ed. pt on postural ex. median nerve glides to assist in decreasing symptoms and return pt to his PLOF. Pt agrees with POC. Rehabilitation Potential: Good - Anticipated Interventions Strengthening, Triggerpoint Release, Modalities, Orthoses, Ergonomic Education, Education re Diagnosis - Visit Plan Frequency: 2x /Week Duration: 4 Weeks TEXT: Thank you for the opportunity to evaluate your patient. For Medicare and Medicare HMO plans, please review the plan of care and approve it. It will need to be FAXED BACK to us at [phone] for Medicare purposes. Please let me know if there are questions or concerns regarding this plan of care. Physician Signature: Date: ____ 04/22/21 0833 CC: ANDRES Espinoza; Dr. Jonatan Gayle MD TANJA Signed For Medicare only, by signing this I certify the plan of care. __ Physicians Signature Date Normal [facility] Encounters Encounter Date Encounter Type Care Provider Facility Start: 11-24-2023 End: 11-28-2023 ambulatory JOSE R ESPINOZA MAINTENANCE INSPECTOR - BICYCLE SERVICE TECHNICIAN Facility:B Start: 11-24-2023 End: 11-28-2023 Outreach Lab JOSE R ESPINOZA MAINTENANCE INSPECTOR - BICYCLE SERVICE TECHNICIAN [facility] Start: 11-26-2021 End: 11-30-2021 Outreach Lab JOSE R Tania ESPINOZA MAINTENANCE INSPECTOR - BICYCLE SERVICE TECHNICIAN [facility] Start: 06-23-2021 End: 06-23-2021 Patient encounter procedure JOSE R ESPINOZA MAINTENANCE INSPECTOR - BICYCLE SERVICE TECHNICIAN [facility] Immunizations Immunization Date Immunization Notes Care Provider Fa cility 07-10-2020 SARS-CoV-2 (COVID-19 ) Ad26 vaccine, recombinant JOSE R ESPINOZA MAINTENANCE INSPECTOR - BICYCLE SERVICE TECHNICIAN [facility] Shaista Comment on above: Result Comment: 2021: [id number] Payers Date Payer Category Payer Self-pay 1965 Unknown [id number] Social History Date Type Detail Facility Start: 01-16-2019 End: 05-31-2023 Never smoked tobacco (finding) [facility] Sex Assigned At [facility] Evaluation + Plan note 06-23-2021 LaboratoryRadiology Note Date & Type Note Facility 06-23-2021 Evaluation + Plan note Future Scheduled TestsC-Reactive Protein 06/23/21D-Dimer 06/23/21Complete Blood Count 06/23/21XR Chest 2 Views (PA & Lateral) 3/22/22 [facility] HCoV 229E RNA CARYN+non-probe Ql (Nph) 06-23-2021 Note Date & Type Note Facility 06-23-2021 HCoV 229E RNA CARYN +non-probe Ql (Nph) Not Detected *NA* (06/23/21 12:00 PM) AH Auto Viro/Sero SS Evaluation + Plan note LaboratoryRadiology Note Date & Type Note Facility Evaluation + Plan note Future Appointments Appointment Date:11/26/2021 08:45:00 AM Scheduled Provider: Location:[facility] Appointment Type:PC Nurse Lab Appointment Date:11/30/2021 08:00:00 AM Scheduled Provider:JOSE R ESPINOZA APRN, CNP Location:[facility] Appointment Type: Wellness Annual w/Labs Future Scheduled TestsC-Reactive Protein 06/23/21D-Dimer 06/23/21Prostate Specific Antigen 11/29/21Complete Blood Count 06/23/21Lipid Profile 11/29/21Complete Metabolic Panel 11/29/21XR Chest 2 Views (PA & Lateral) 06/23/21 [facility] Evaluation + Plan note Note Date & Type Note Facility Evaluation + Plan note Future Appointments Appointment Date:11/29/2023 02:00:00 PM Scheduled Provider:JOSE R ESPINOZA APRN, CNP Location:[facility] Appointment Type: Wellness Annual [facility] Hospital course Narrative Note Date & Type Note Facility Hospital course Narrative No data available for this section [facility] Hospital Discharge instructions Note Date & Type Note Facility Hospital Discharge instructions No data available for this section [facility] Progress note Note Date & Type Note Facility Progress note No data available for this section [facility] Summary Purpose Family History No Family History Records Found No data available for this section No Family History Records Found Advance Directives No Advanced Directives Records FoundNo Advanced Directives Records Found Additional Source Comments (unrecognized sect ion and content) No Status Records FoundNo Status Records Found INFORMATION SOURCE (unrecogn ized section and content) DATE CREATED AUTHOR 06/21/2021 [facility] DATE CREATED AUTHOR AUTHOR'S ABRAHAN ATTUNDE 11/30/2023 [facility] ([place]) Care Team (unrecognized sect ion and content) Care Team Personnel Name: JOSE R ESPINOZA MAINTENANCE INSPECTOR - BICYCLE SERVICE TECHNICIAN Position: P4 Advanced Practice Nurse Member Role: Primary Care Physician Address: Address: [address] [place] [address] Care Team Related Persons Name: LATISHA ESPINOZA Patient Care team informatio n (unrecognized section and content) Care Team Personnel Name: JOSE R ESPINOZA MAINTENANCE INSPECTOR - BICYCLE SERVICE TECHNICIAN Position: P4 Advanced [employer] Member Role: Primary Care Physician Address: Address: [address] [place] [address] Care Team Related Persons Name: LATISHA ESPINOZA FOR RECORDS PERTAINING TO PATIENTS WHO ARE OR HAVE BEEN ENROLLED IN A CHEMICAL DEPENDENCY/SUBSTANCEABUSE PROGRAM, SOME INFORMATION MAY BE OMITTED. This clinical summary was aggregated from multiple sources. Caution should be exercised in using it in the provision of clinical care. This summary normalizes information from multiple sources, and as a consequence, information in this document may materially change the coding, format and clinical context of patient data. In addition, data may be omitted in some cases. CLINICAL DECISIONS SHOULD BE BASED ON THE PRIMARY CLINICAL RECORDS. [facility] [employer] [facility]. provides no warranty or guarantee of the accuracy or completeness of information in this document.
[2025-03-25 10:41] LABS: Hematocrit 45.7 % (40-54); Hemoglobin 14.6 g/dL (13.0-16.5); Mean Corp Hgb Conc 31.9 g/dL (32-36); Mean Corpuscular Volume 93.5 fL (80-94); Mean Platelet Vol. 10.1 fl (6.2-12.0); Platelet Count 270 K/mm3 (150-450); RBC Distribution Width CV 13.3 % (11.6-14.6); RBC Distribution Width SD 45.8 fl (35.1-43.9); Red Blood Count 4.89 M/mm3 (4.6-6.2); White Blood Count 9.2 K/mm3 (4.4-11.0)
[2025-03-25 10:58] LABS: AST(SGOT) 17 U/L (<=37); Alanine Aminotransfer ALT/SGPT 17 U/L (<=46); Albumin, Serum 4.2 g/dL (3.4-4.8); Alkaline Phosphatase 46 U/L (40-129); Anion Gap 10 (5-15); BUN 18 mg/dL (4-19); BUN/Creat Ratio 17.6 RATIO (10-20); Calcium,Total 9.5 mg/dL (7.6-11.0); Carbon Dioxide 25.6 mmol/L (21.0-32.0); Chloride 104 mmol/L (98-108); Cholesterol 144 mg/dL (<=200); Globulin 3.7 g/dL (2.2-4.2); Glucose 102 mg/dL (70-99); Low Density Lipoprotein Calc. 85 mg/dL; PSA,Total - Annual Screen 7.32 ng/mL (0.02-4.00); Potassium 4.8 mmol/L (3.3-5.1); Triglycerides 51 mg/dL; Very Low Density Lipoprotein 10 mg/dL (5-40); cholesterol:hdl ratio screen 3.03
== END | disposition home or self-care (01) ==
PROVIDERS: PCP Family Medicine; Referring Provider Family Medicine; Visit Provider Family Medicine
DX: Z00.00 Encounter for general adult medical examination without abnormal findings (principal); Z13.220 Encounter for screening for lipoid disorders; Z13.1 Encounter for screening for diabetes mellitus; Z12.5 Encounter for screening for malignant neoplasm of prostate
CPT/HCPCS: 36415; 80053; 80061; 83036; 84153; 85027; G0103

== ENCOUNTER → 2025-03-26 | Outpatient (CLI) | payer SELFPAY | END | disposition home or self-care (01) | LOC: LABSPEC 13:57 | PROVIDERS: PCP Family Medicine; Visit Provider Family Medicine | DX: R35.0 Frequency of micturition (principal) | CPT/HCPCS: 87086 ==